=== PATIENT | male | born 1955 | race Caucasian/White ===

== ENCOUNTER 2017-04-05 11:55 | Day surgery (SDC) | payer MEDICAID ==
[~2017-04-05 11:55] MED LIST: ACETAMINOPHEN 1,000 MG/100 ML BTL IV ONE; CEFAZOLIN 1 Gram 1 GM/50 ML BAG IVPB ONE
[2017-04-05] MEDS ORDERED: LIDOCAINE 2% MDV (20MG/ML) 20ML VIAL IV ONE (11:56)
[2017-04-05] MEDS ORDERED: BUPIVACAINE 0.75% W/EPI MPF 30ML VIAL IVP ONE (11:56)
[2017-04-05] MEDS ORDERED: FENTANYL PF 100MCG/2ML VIAL IV ONE (11:56)
[2017-04-05] MEDS ORDERED: MIDAZOLAM HCL 2MG/2ML VIAL IV ONE (11:56)
[2017-04-05] MEDS ORDERED: PROPOFOL 10 MG/ML VIAL IV ONE (11:56)
--- NOTE | 2017-04-06 13:10 | Operative Note ---
DATE OF SURGERY: 04/05/2017 Surgeon: Venkatesh Meléndez DO PREOPERATIVE DIAGNOSIS: Right upper leg mass. POSTOPERATIVE DIAGNOSIS: Right upper leg mass. OPERATION: Wide excision of right upper leg mass. Indication: The patient is a 62-year-old male whom I saw in the clinic with what appeared to be a rather large seborrheic keratosis in the anterior aspect of the right thigh. We did discuss wide excision; risks, benefits, and alternatives. Risks include bleeding, infection, wound dehiscence. He understood this fully. Thereafter, consent was signed and questions answered. PROCEDURE: He was taken to the operating room and placed in a supine position. General anesthesia was administered per the department of anesthesia. The patient's leg was prepped and draped in the usual fashion. The area was mapped out with 5 mm margins on the side completing an elliptical incision. This was carried down into the subcutaneous tissue with cautery. This was then passed off the field. The wound was then undermined and closed with 3-0 and 4-0 Vicryl. Dermabond was placed. He was taken to the recovery room in satisfactory condition. Final pathology pending. CC: Nicolle [email or web address]
== END 2017-04-05 13:32 | disposition home or self-care (01) ==
LOC: SUR 11:55
PROVIDERS: ATTEND Surgery
DX: L82.1 Other seborrheic keratosis (principal)
CPT/HCPCS: 11406; 12032; 00300; J0690; J3490